=== PATIENT | male | born 1980 | race Caucasian/White ===

== ENCOUNTER 2020-10-16 14:09 | Emergency (ER) | payer BC, OTHER ==
[~2020-10-16] VITALS: Ht 172.7 cm; Wt 68.0 kg
[2020-10-16 14:20] VITALS: BP 129/80
[2020-10-16] MEDS ORDERED: LIDOCAINE 1% HCL (LOCAL ANESTH.) INJ 20ML MDV IJ ONE (14:45)
[2020-10-16] MEDS ORDERED: traMADol HCL 50 MG TAB PO ONE (14:45)
[2020-10-16] MEDS ORDERED: TETANUS-DIPTH-ACEL PERTUSSIS 0.5ML SYR Tdap IM ONE (14:45)
== END 2020-10-16 15:52 | disposition home or self-care (01) ==
LOC: ER 14:09
DX: S61.213A Laceration without foreign body of left middle finger without damage to nail, initial encounter (principal); F17.210 Nicotine dependence, cigarettes, uncomplicated; X58.XXXA Exposure to other specified factors, initial encounter; Y93.89 Activity, other specified; Y92.89 Other specified places as the place of occurrence of the external cause; Y99.8 Other external cause status
CPT/HCPCS: 12001; 73120; 90471; 90715; 99283; J2001